=== PATIENT | male | born 1940 | race Caucasian/White ===

== ENCOUNTER → 2016-12-12 | Outpatient (CLI) | payer MEDICARE, BC ==
[2016-12-12 09:16] LABS: HEMATOCRIT 43.8 % (37.9-51.0); HEMOGLOBIN 14.8 g/dL (13.5-17.0); HGB HCT DIFFERENCE 0.6; MEAN CORPUSCULAR HEMOGLOBIN 29.8 pg (27.0-33.4); MEAN CORPUSCULAR HGB CONC 33.7 g/dL (32.0-36.0); MEAN CORPUSCULAR VOLUME 88 fl (80-97); RED BLOOD COUNT 4.96 10^6/uL (4.35-5.55); RED CELL DISTRIBUTION WIDTH 14.7 % (11.5-14.0); WHITE BLOOD COUNT 5.5 10^3/uL (4.0-10.5)
[2016-12-12 09:38] LABS: ALANINE AMINOTRANSFERASE 31 U/L (21-72); ALBUMIN 3.9 g/dL (3.5-5.0); ALKALINE PHOSPHATASE 61 U/L (38-126); ANION GAP 12 (5-19); ASPARTATE AMINO TRANSFERASE 24 U/L (17-59); BILIRUBIN,DIRECT 0.2 mg/dL (0.0-0.4); BLOOD UREA NITROGEN 14 mg/dL (7-20); CALCIUM 9.7 mg/dL (8.4-10.2); CARBON DIOXIDE 26 mmol/L (22-30); CHLORIDE 104 mmol/L (98-107); CHOLESTEROL 120.76 mg/dL (0-200); CREATININE RESULT 0.87 mg/dL (0.52-1.25); Direct HDL 28 mg/dL (>40); GLUCOSE 133 mg/dL (75-110); MAGNESIUM 1.9 mg/dL (1.6-2.3); POTASSIUM 4.5 mmol/L (3.6-5.0); SODIUM 141.7 mmol/L (137-145); TOTAL PROTEIN 6.5 g/dL (6.3-8.2); TRIGLYCERIDES 151 mg/dL (<150)
[2016-12-12 09:49] LABS: DIRECT LDL 66 mg/dL (<100)
[2016-12-12 09:56] LABS: VLDL CHOLESTEROL 30.2 mg/dL (10-31)
== END ==
LOC: OD 08:35
PROVIDERS: ATTEND Internal Medicine Cardiovascular Disease
DX: E11.9 Type 2 diabetes mellitus without complications (principal); Z79.899 Other long term (current) drug therapy; E78.2 Mixed hyperlipidemia
CPT/HCPCS: 36415; 80048; 80061; 80076; 83036; 83735; 84443; 85027

== ENCOUNTER → 2017-07-09 | Outpatient (CLI) | payer MEDICARE, BC ==
[2017-07-09 08:41] LABS: CHOLESTEROL 124.16 mg/dL (0-200); Direct HDL 27 mg/dL (>40); TRIGLYCERIDES 208 mg/dL (<150)
[2017-07-09 08:51] LABS: DIRECT LDL 72 mg/dL (<100)
[2017-07-09 08:55] LABS: VLDL CHOLESTEROL 41.6 mg/dL (10-31)
== END ==
LOC: OD 07:20
PROVIDERS: ATTEND Internal Medicine Cardiovascular Disease
DX: E78.2 Mixed hyperlipidemia (principal)
CPT/HCPCS: 36415; 80061

== ENCOUNTER → 2017-09-20 | Outpatient (CLI) | payer MEDICARE, BC ==
[2017-09-20 10:18] LABS: HEMATOCRIT 45.5 % (37.9-51.0); HEMOGLOBIN 15.2 g/dL (13.5-17.0); MEAN CORPUSCULAR HEMOGLOBIN 29.7 pg (27.0-33.4); MEAN CORPUSCULAR HGB CONC 33.5 g/dL (32.0-36.0); MEAN CORPUSCULAR VOLUME 89 fl (80-97); PLATELET COUNT 206 10^3/uL (150-450); RED BLOOD COUNT 5.13 10^6/uL (4.35-5.55); RED CELL DISTRIBUTION WIDTH 14.5 % (11.5-14.0)
[2017-09-20 10:44] LABS: ANION GAP 11 (5-19); BLOOD UREA NITROGEN 15 mg/dL (7-20); CALCIUM 9.4 mg/dL (8.4-10.2); CARBON DIOXIDE 26 mmol/L (22-30); CHLORIDE 104 mmol/L (98-107); CHOLESTEROL 113.96 mg/dL (0-200); GLUCOSE 155 mg/dL (75-110); MAGNESIUM 1.9 mg/dL (1.6-2.3); POTASSIUM 4.5 mmol/L (3.6-5.0); SODIUM 140.9 mmol/L (137-145); TRIGLYCERIDES 116 mg/dL (<150)
[2017-09-20 10:53] LABS: DIRECT LDL 72 mg/dL (<100)
== END ==
LOC: OD 09:10
PROVIDERS: ATTEND Internal Medicine Cardiovascular Disease
DX: E78.2 Mixed hyperlipidemia (principal); E11.22 Type 2 diabetes mellitus with diabetic chronic kidney disease; N18.9 Chronic kidney disease, unspecified; I50.22 Chronic systolic (congestive) heart failure; Z79.899 Other long term (current) drug therapy
CPT/HCPCS: 36415; 80048; 80061; 80162; 83036; 83735; 84443; 85027

== ENCOUNTER → 2017-09-20 | Outpatient (CLI) | payer MEDICARE, BC | LOC: OD 09:08 | PROVIDERS: ATTEND Internal Medicine Cardiovascular Disease | DX: Z53.9 Procedure and treatment not carried out, unspecified reason (principal) ==

== ENCOUNTER → 2017-12-07 | Outpatient (CLI) | payer MEDICARE, BC ==
[2017-12-07 09:52] LABS: ANION GAP 10 (5-19); BLOOD UREA NITROGEN 14 mg/dL (7-20); CALCIUM 9.6 mg/dL (8.4-10.2); CARBON DIOXIDE 28 mmol/L (22-30); CHLORIDE 104 mmol/L (98-107); GLUCOSE 162 mg/dL (75-110); POTASSIUM 4.7 mmol/L (3.6-5.0); SODIUM 141.7 mmol/L (137-145)
== END ==
LOC: OD 08:05
PROVIDERS: ATTEND Internal Medicine Cardiovascular Disease
DX: E11.9 Type 2 diabetes mellitus without complications (principal); I10 Essential (primary) hypertension; Z79.899 Other long term (current) drug therapy
CPT/HCPCS: 36415; 80048; 83036

== ENCOUNTER → 2017-12-07 | Outpatient (CLI) | payer MEDICARE, BC | LOC: OD 08:28 | PROVIDERS: ATTEND Internal Medicine Cardiovascular Disease | DX: Z53.8 Procedure and treatment not carried out for other reasons (principal) ==

== ENCOUNTER → 2018-03-10 | Outpatient (CLI) | payer MEDICARE ==
[2018-03-10 09:30] LABS: ANION GAP 14 (5-19); BLOOD UREA NITROGEN 15 mg/dL (7-20); CALCIUM 9.2 mg/dL (8.4-10.2); CARBON DIOXIDE 24 mmol/L (22-30); CHLORIDE 105 mmol/L (98-107); CHOLESTEROL 80.43 mg/dL (0-200); GLUCOSE 123 mg/dL (75-110); POTASSIUM 3.9 mmol/L (3.6-5.0); SODIUM 142.9 mmol/L (137-145); TRIGLYCERIDES 102 mg/dL (<150)
[2018-03-10 09:40] LABS: DIRECT LDL 36 mg/dL (<100)
== END ==
LOC: OD 07:59
PROVIDERS: ATTEND Internal Medicine Cardiovascular Disease
DX: E11.9 Type 2 diabetes mellitus without complications (principal)
CPT/HCPCS: 36415; 80048; 80061; 83036

== ENCOUNTER 2018-03-22 15:53 | Emergency (ER) | payer MEDICARE, BC ==
--- NOTE | 2018-03-22 16:15 | ER Document Report ---
ED Medical Screen (RME) - General Chief Complaint: Urinary Problem Stated Complaint: BLOOD IN URINE Time Seen by Provider: 03/22/18 16:13 Mode of Arrival: Ambulatory Information source: Patient TRAVEL OUTSIDE OF THE [place] IN LAST 30 DAYS: No - HPI Patient complains to provider of: hematuria Onset: This morning - pt had surgical procedure done last month in which cancerous lesions remmoved from bladder. Urine was clear post-op until earlier this am when he developed painless hematuria - Related Data Allergies/Adverse Reactions: No Known Allergies Allergy (Verified 03/22/18 15:54) Past Medical History - Past Medical History Cardiac Medical History: Reports: Hx Coronary Artery Disease, Hx Heart Attack, Hx Hypercholesterolemia, Hx Hypertension Pulmonary Medical History: Reports: Hx Sleep Apnea Past Surgical History: Reports: Hx Coronary Stent, Hx Pacemaker, Hx Tonsillectomy Physical Exam - Vital signs Vitals: Temp Pulse Resp BP Pulse Ox 98.5 F 72 18 133/64 H 96 03/22/18 15:59 03/22/18 15:59 03/22/18 15:59 03/22/18 15:59 03/22/18 15:59 Course - Vital Signs Vital signs: Temp Pulse Resp BP Pulse Ox 98.5 F 72 18 133/64 H 96 03/22/18 15:59 03/22/18 15:59 03/22/18 15:59 03/22/18 15:59 03/22/18 15:59 Doctor's Discharge - Discharge Referrals: RODRÍGUEZ CALVERT MD [Primary Care Provider] - Follow up as needed
[2018-03-22 17:46] LABS: ABSOLUTE BASOPHILS # (AUTO) 0.1 10^3/uL (0.0-0.2); ABSOLUTE EOSINOPHILS # (AUTO) 0.4 10^3/uL (0.0-0.6); ABSOLUTE LYMPHOCYTES (AUTO) 1.7 10^3/uL (0.5-4.7); ABSOLUTE MONOCYTES (AUTO) 0.7 10^3/uL (0.1-1.4); ABSOLUTE NEUT (AUTO) 4.5 10^3/uL (1.7-8.2); EOSINOPHILS % (AUTO) 5.9 % (0-6); HEMATOCRIT 42.7 % (37.9-51.0); HEMOGLOBIN 14.3 g/dL (13.5-17.0); LYMPHOCYTES % (AUTO) 22.9 % (13-45); MEAN CORPUSCULAR HEMOGLOBIN 29.3 pg (27.0-33.4); MEAN CORPUSCULAR HGB CONC 33.4 g/dL (32.0-36.0); MEAN CORPUSCULAR VOLUME 88 fl (80-97); MONOCYTES % (AUTO) 9.2 % (3-13); PLATELET COUNT 185 10^3/uL (150-450); RED BLOOD COUNT 4.86 10^6/uL (4.35-5.55); RED CELL DISTRIBUTION WIDTH 14.8 % (11.5-14.0); TOTAL CELLS COUNTED % (AUTO) 100 %; WHITE BLOOD COUNT 7.4 10^3/uL (4.0-10.5)
[2018-03-22 18:05] LABS: ALANINE AMINOTRANSFERASE 34 U/L (21-72); ALBUMIN 3.7 g/dL (3.5-5.0); ALKALINE PHOSPHATASE 63 U/L (38-126); ANION GAP 14 (5-19); APPEARANCE,URINE SLIGHTLY-CLOUDY; ASPARTATE AMINO TRANSFERASE 20 U/L (17-59); BILIRUBIN,DIRECT 0.3 mg/dL (0.0-0.4); BILIRUBIN,TOTAL 0.7 mg/dL (0.2-1.3); BILIRUBIN,URINE NEGATIVE (NEGATIVE); BLOOD UREA NITROGEN 14 mg/dL (7-20); CALCIUM 9.8 mg/dL (8.4-10.2); CARBON DIOXIDE 25 mmol/L (22-30); CHLORIDE 104 mmol/L (98-107); GLUCOSE 116 mg/dL (75-110); GLUCOSE, URINE NEGATIVE (NEGATIVE); KETONES,URINE NEGATIVE (NEGATIVE); LEUKOCYTE ESTERASE,URINE NEGATIVE (NEGATIVE); NITRITE,URINE NEGATIVE (NEGATIVE); POTASSIUM 3.9 mmol/L (3.6-5.0); PROTEIN,URINE 100 mg/dL (NEGATIVE); SODIUM 142.9 mmol/L (137-145); TOTAL PROTEIN 6.2 g/dL (6.3-8.2); URINE SPECIFIC GRAVITY 1.012; UROBILINOGEN,URINE NEGATIVE mg/dL (<2.0)
[2018-03-22 18:12] LABS: COLOR,URINE RED
[2018-03-22] MEDS ORDERED: CEPHALEXIN 500 MG CAPSULE PO ONE (18:19)
--- NOTE | 2018-03-22 18:34 | ER Document Report ---
ED General - General Chief Complaint: Urinary Problem Stated Complaint: BLOOD IN URINE Time Seen by Provider: 03/22/18 16:13 Mode of Arrival: Ambulatory Notes: Patient is a 77-year-old male with a past medical history of bladder cancer status post surgical procedure 3 weeks ago who presents with 4 days of progressive urinary urgency, dysuria and 24 hours of hematuria. The patient describes the discomfort with urination as being a pressure, burning-like sensation. He notes that he became quite concerned when he had persistent gross hematuria throughout the day today prompting him to come to the emergency department. He denies any hematuria until the last 24 hours since having the surgical procedure. He did contact his urologist and has a scheduled follow-up in the next couple days. He notes that he otherwise has no additional symptoms and otherwise feels quite well. Denies any fever or constitutional symptoms. No history of similar symptoms in the past. TRAVEL OUTSIDE OF THE [place] IN LAST 30 DAYS: No - Related Data Allergies/Adverse Reactions: No Known Allergies Allergy (Verified 03/22/18 16:16) Past Medical History - General Information source: Patient - Social History Smoking Status: Former Smoker Chew tobacco use (# tins/day): No Frequency of alcohol use: None Drug Abuse: None Lives with: Family Family History: Reviewed & Not Pertinent Patient has suicidal ideation: No Patient has homicidal ideation: No - Past Medical History Cardiac Medical History: Reports: Hx Coronary Artery Disease, Hx Heart Attack, Hx Hypercholesterolemia, Hx Hypertension Pulmonary Medical History: Reports: Hx Sleep Apnea Renal/ Medical History: Denies: Hx Peritoneal Dialysis Past Surgical History: Reports: Hx Cardiac Surgery - pacemaker/defib, Hx Coronary Stent, Hx Pacemaker, Hx Tonsillectomy, Hx Urinary Tract Surgery - spots removed from bladder Review of Systems - Review of Systems Notes: Constitutional: Negative for fever. HENT: Negative for sore throat. Eyes: Negative for visual changes. Cardiovascular: Negative for chest pain. Respiratory: Negative for shortness of breath. Gastrointestinal: Negative for abdominal pain, vomiting or diarrhea. Genitourinary: Positive for gross hematuria Musculoskeletal: Negative for back pain. Skin: Negative for rash. Neurological: Negative for headaches, weakness or numbness. 10 point ROS negative except as marked above and in HPI. Physical Exam - Vital signs Vitals: Temp Pulse Resp BP Pulse Ox 98.5 F 72 18 133/64 H 96 03/22/18 15:59 03/22/18 15:59 03/22/18 15:59 03/22/18 15:59 03/22/18 15:59 Interpretation: Normal Notes: PHYSICAL EXAMINATION: GENERAL: Well-appearing, well-nourished and in no acute distress. HEAD: Atraumatic, normocephalic. EYES: Pupils equal round and reactive to light, extraocular movements intact, sclera anicteric, conjunctiva are normal. ENT: nares patent, oropharynx clear without exudates. Moist mucous membranes. NECK: Normal range of motion, supple without lymphadenopathy LUNGS: Breath sounds clear to auscultation bilaterally and equal. No wheezes rales or rhonchi. HEART: Regular rate and rhythm without murmurs ABDOMEN: Soft, nontender, normoactive bowel sounds. No guarding, no rebound. No masses appreciated. EXTREMITIES: Normal range of motion, no pitting or edema. No cyanosis. NEUROLOGICAL: No focal neurological deficits. Moves all extremities spontaneously and on command. PSYCH: Normal mood, normal affect. SKIN: Warm, Dry, normal turgor, no rashes or lesions noted. Course - Re-evaluation Re-evalutation: 03/22/18 18:19 Patient presents with symptoms consistent with an acute hemorrhagic cystitis. He has gross, painless hematuria although does have a known history of bladder malignancy status post operative intervention 1 month ago. Vitals wnl. No history of fever, flank pain, or constitution symptoms to suggest ascending infection at this time. Patient is well in appearance, tolerating oral intake without difficulty. No focal abdominal tenderness to suggest acute appendicitis , biliary pathology, acute pancreatitis. labs do not show any significant anemia , leukocytosis or renal dysfunction p. Atient will be started on antibiotics at this time. A culture has been sent. I have emphasized the need for close follow-up with urology given his complicated history. At this time will discharge with return precautions and follow-up recommendations. Verbal discharge instructions given a the bedside and opportunity for questions given. Medication warnings reviewed. Patient is in agreement with this plan and has verbalized understanding of return precautions and the need for primary care follow-up in the next 24-72 hours. - Vital Signs Vital signs: Temp Pulse Resp BP Pulse Ox 98.5 F 72 12 142/68 H 98 03/22/18 15:59 03/22/18 15:59 03/22/18 19:01 03/22/18 19:01 03/22/18 19:01 - Laboratory Result Diagrams: 03/22/18 17:20 03/22/18 17:20 Laboratory results interpreted by me: 03/22/18 03/22/18 03/22/18 17:20 17:20 17:20 RDW 14.8 H Glucose 116 H Total Protein 6.2 L Urine Protein 100 H Urine Blood LARGE H Discharge - Discharge Clinical Impression: Hemorrhagic cystitis, History of bladder cancer Condition: Stable Disposition: HOME, SELF-CARE Additional Instructions: Your urine shows findings consistent with a urinary tract infection. Please take all the antibiotics as directed even if your symptoms have improved. Please follow-up with your urologist as soon as possible given your prior history of bladder malignancy. Return to emergency room if you develop fever > 101F, persistent vomiting, become lethargic, have severe pain in your sides, or any other symptoms that are concerning to you. Prescriptions: Cephalexin Monohydrate [Keflex 500 mg Capsule] 500 mg PO Q6H 7 Days capsule Referrals: RODRÍGUEZ CALVERT MD [Primary Care Provider] - Follow up as needed
[2018-03-22 19:17] VITALS: BP 142/68
== END 2018-03-22 19:20 | disposition home or self-care (01) ==
LOC: ER 15:53
DX: N30.91 Cystitis, unspecified with hematuria (principal); Z85.51 Personal history of malignant neoplasm of bladder; Z98.890 Other specified postprocedural states; I25.10 Atherosclerotic heart disease of native coronary artery without angina pectoris; I10 Essential (primary) hypertension; I25.2 Old myocardial infarction; Z95.810 Presence of automatic (implantable) cardiac defibrillator; Z95.5 Presence of coronary angioplasty implant and graft; Z87.891 Personal history of nicotine dependence
CPT/HCPCS: 99283; 36415; 87086; 85025; 87088; 80053; 81001; 87186; A9270

== ENCOUNTER → 2018-06-20 | Day surgery (SDC) | payer MEDICARE, BC ==
--- NOTE | 2018-06-20 16:21 | RADIOLOGY REPORT (SQ) ---
EXAM DESCRIPTION: CT RT UPPER EXTREMITY WITH COMPLETED DATE/TIME: 06/20/2018 3:57 pm REASON FOR STUDY: M75.121 COMPLETE ROTATR-CUFF TEAR/RUPTR OF R SHOULDER, NOT TRAUMA M75.121 COMPLET E ROTATR-CUFF TEAR/RUPTR OF R SHOULDER, NOT T COMPARISON: None. TECHNIQUE: Axial imaging performed through the [facility] with reformatted oblique coronal and ob lique sagittal imaging windowed for bone and soft tissues. All CT scanners at this facility use dose modulation, iterative reconstruction, and/or weight based d osing when appropriate to reduce radiation dose to as low as reasonably achievable (ALARA). [facility]: Dose Right [facility]: CareDose [facility]: Dose Right [facility]: Teradose 4D [facility]: Independa RADIATION DOSE: CT Rad equipment meets quality standard of care and radiation dose reduction techniq ues were employed. CTDIvol: 13.6 mGy. DLP: 338 mGy-cm. mGy. LIMITATIONS: None. FINDINGS: SOFT TISSUES: Unremarkable BONY ARCHITECTURE: Normal bone density. No fracture. No lytic or blastic lesions GLENOHUMERAL JOINT: Mild diffuse chondromalacia. Subcortical cyst formation over the lower 3rd of th e bony glenoid on coronal reconstruction image 34 ACROMION AND AC JOINT: Type 2 acromion with bulky acromioclavicular joint hypertrophy narrowing the s ubacromial space, this is best shown on sagittal reconstruction image 51 ROTATOR CUFF: Full-thickness tear anterior supraspinatus tendon, with a 2 cm gap best shown on sagitt al reconstruction images 58-63. There is leakage of contrast into the subacromial/subdeltoid bursa. Infraspinatus, subscapularis are intact. GLENOID, LABRUM AND BICEPS: Intact OTHER: No other significant finding. IMPRESSION: Full-thickness tear anterior supraspinatus tendon at its greater tuberosity attachment. Bulky acromioclavicular joint hypertrophy TECHNICAL DOCUMENTATION: JOB ID: [id number] Quality ID # [id number]: Final reports with documentation of one or more dose reduction techniques (e.g., Au tomated exposure control, adjustment of the mA and/or kV according to patient size, use of iterative reconstruction technique) 2010 [employer]- All Rights Reserved Reading location - IP/workstation name: [facility]
--- NOTE | 2018-06-20 16:26 | RADIOLOGY REPORT (SQ) ---
EXAM DESCRIPTION: ARTHRO SHOULDER INJECTION; FLUORO/NEEDLE PLACEMENT COMPLETED DATE/TIME: 06/20/2018 4:05 pm REASON FOR STUDY: M75.121 COMPLETE ROTATR-CUFF TEAR/RUPTR OF R SHOULDER, NOT TRAUMA M75.121 COMPLET E ROTATR-CUFF TEAR/RUPTR OF R SHOULDER, NOT T COMPARISON: None. FLUOROSCOPY TIME: 0.2 minutes 2 digital radiographic images saved to PACS. LIMITATIONS: None. PROCEDURE: Procedure, risks, benefits and alternative explained to patient who then gave written con sent. The posterior right shoulder was marked and a time-out was called for correct marking verifica tion. Posterior entry site marked using fluoroscopic guidance. Shoulder prepped and draped using st erile technique. Local anesthesia achieved using 8 mL of 1% lidocaine injection. 22 gauge spinal nee dle introduced into the joint space under direct fluoroscopic visualization. Non-ionic contrast inst illed to confirm intra-articular position. Additional dilute non-ionic contrast instilled. Needle r emoved and entry site covered with sterile bandage. No immediate complications noted. TECHNIQUE: Digital images acquired during fluoroscopy and stored on PACS. Patient immediately take n to the CT suite for additional imaging. INJECTION LOCATION: Posterior right glenohumeral joint CONTRAST TYPE AND AMOUNT: 1 mL of Omnipaque 300 was injected to confirm intra-articular needle placem ent, followed by 10 mL of dilute Omnipaque/saline mixture for CT arthrogram. On injection, there was immediate opacification of the sub acromial/subdeltoid bursa through a full-thickness supraspinatus tear. IMPRESSION: SUCCESSFUL NEEDLE PLACEMENT AND INJECTION FOR RIGHT SHOULDER CT ARTHROGRAM USING POSTERI OR APPROACH. COMMENT: Quality ID 145: Final reports for procedures using fluoroscopy that document radiation exp osure indices, or exposure time and number of fluorographic images (if radiation exposure indices are not available) TECHNICAL DOCUMENTATION: JOB ID: [id number] [employer]- All Rights Reserved Reading location - IP/workstation name: [email or web address]
--- NOTE | 2018-06-20 16:26 | RADIOLOGY REPORT (SQ) ---
EXAM DESCRIPTION: ARTHRO SHOULDER INJECTION; FLUORO/NEEDLE PLACEMENT COMPLETED DATE/TIME: 06/20/2018 4:05 pm REASON FOR STUDY: M75.121 COMPLETE ROTATR-CUFF TEAR/RUPTR OF R SHOULDER, NOT TRAUMA M75.121 COMPLET E ROTATR-CUFF TEAR/RUPTR OF R SHOULDER, NOT T COMPARISON: None. FLUOROSCOPY TIME: 0.2 minutes 2 digital radiographic images saved to PACS. LIMITATIONS: None. PROCEDURE: Procedure, risks, benefits and alternative explained to patient who then gave written con sent. The posterior right shoulder was marked and a time-out was called for correct marking verifica tion. Posterior entry site marked using fluoroscopic guidance. Shoulder prepped and draped using st erile technique. Local anesthesia achieved using 8 mL of 1% lidocaine injection. 22 gauge spinal nee dle introduced into the joint space under direct fluoroscopic visualization. Non-ionic contrast inst illed to confirm intra-articular position. Additional dilute non-ionic contrast instilled. Needle r emoved and entry site covered with sterile bandage. No immediate complications noted. TECHNIQUE: Digital images acquired during fluoroscopy and stored on PACS. Patient immediately take n to the CT suite for additional imaging. INJECTION LOCATION: Posterior right glenohumeral joint CONTRAST TYPE AND AMOUNT: 1 mL of Omnipaque 300 was injected to confirm intra-articular needle placem ent, followed by 10 mL of dilute Omnipaque/saline mixture for CT arthrogram. On injection, there was immediate opacification of the sub acromial/subdeltoid bursa through a full-thickness supraspinatus tear. IMPRESSION: SUCCESSFUL NEEDLE PLACEMENT AND INJECTION FOR RIGHT SHOULDER CT ARTHROGRAM USING POSTERI OR APPROACH. COMMENT: Quality ID 145: Final reports for procedures using fluoroscopy that document radiation exp osure indices, or exposure time and number of fluorographic images (if radiation exposure indices are not available) TECHNICAL DOCUMENTATION: JOB ID: [id number] [employer]- All Rights Reserved Reading location - IP/workstation name: [email or web address]
== END ==
LOC: RAD 15:11
PROVIDERS: ATTEND Orthopaedic Surgery
DX: M75.121 Complete rotator cuff tear or rupture of right shoulder, not specified as traumatic (principal)
CPT/HCPCS: 23350; 77002

== ENCOUNTER → 2018-09-10 | Outpatient (CLI) | payer MEDICARE, BC ==
[2018-09-10 09:27] LABS: ALANINE AMINOTRANSFERASE 30 U/L (21-72); ALBUMIN 4.4 g/dL (3.5-5.0); ALKALINE PHOSPHATASE 61 U/L (38-126); ANION GAP 10 (5-19); ASPARTATE AMINO TRANSFERASE 22 U/L (17-59); BILIRUBIN,DIRECT 0.2 mg/dL (0.0-0.4); BILIRUBIN,TOTAL 0.9 mg/dL (0.2-1.3); BLOOD UREA NITROGEN 15 mg/dL (7-20); CALCIUM 9.8 mg/dL (8.4-10.2); CARBON DIOXIDE 29 mmol/L (22-30); CHLORIDE 104 mmol/L (98-107); CHOLESTEROL 131.87 mg/dL (0-200); GLUCOSE 111 mg/dL (75-110); POTASSIUM 4.7 mmol/L (3.6-5.0); SODIUM 142.7 mmol/L (137-145); TOTAL PROTEIN 6.9 g/dL (6.3-8.2); TRIGLYCERIDES 124 mg/dL (<150)
[2018-09-10 09:38] LABS: DIRECT LDL 83 mg/dL (<100)
== END ==
LOC: OD 07:55
PROVIDERS: ATTEND Internal Medicine Cardiovascular Disease
DX: I10 Essential (primary) hypertension (principal); E11.9 Type 2 diabetes mellitus without complications; E78.2 Mixed hyperlipidemia
CPT/HCPCS: 36415; 80048; 80061; 80076; 83036

== ENCOUNTER → 2019-03-11 | Outpatient (CLI) | payer MEDICARE, BC ==
[2019-03-11 09:16] LABS: ALANINE AMINOTRANSFERASE 23 U/L (21-72); ALBUMIN 4.3 g/dL (3.5-5.0); ALKALINE PHOSPHATASE 79 U/L (38-126); ANION GAP 9 (5-19); ASPARTATE AMINO TRANSFERASE 25 U/L (17-59); BILIRUBIN,DIRECT 0.3 mg/dL (0.0-0.4); BILIRUBIN,TOTAL 0.7 mg/dL (0.2-1.3); BLOOD UREA NITROGEN 17 mg/dL (7-20); CALCIUM 10.1 mg/dL (8.4-10.2); CARBON DIOXIDE 25 mmol/L (22-30); CHLORIDE 106 mmol/L (98-107); GLUCOSE 127 mg/dL (75-110); POTASSIUM 4.6 mmol/L (3.6-5.0); TRIGLYCERIDES 105 mg/dL (<150)
[2019-03-11 09:28] LABS: DIRECT LDL 82 mg/dL (<100)
== END ==
LOC: OD 08:00
PROVIDERS: ATTEND Internal Medicine Cardiovascular Disease
DX: E78.2 Mixed hyperlipidemia (principal); I10 Essential (primary) hypertension; Z79.899 Other long term (current) drug therapy
CPT/HCPCS: 36415; 80048; 80061; 80076

== ENCOUNTER 2019-05-23 19:17 | Emergency (ER) | payer MEDICARE, BC ==
[2019-05-23] MEDS ORDERED: ONDANSETRON HCL INJ/PF 4 MG/2 ML SDV IV ONE (20:25)
[2019-05-23] MEDS ORDERED: NORMAL SALINE 1000 ML 1,000 ML IV ONE (20:28)
[2019-05-23 20:43] LABS: ABSOLUTE LYMPHOCYTES (AUTO) 0.8 10^3/uL (0.5-4.7); ABSOLUTE MONOCYTES (AUTO) 0.3 10^3/uL (0.1-1.4); ABSOLUTE NEUT (AUTO) 6.4 10^3/uL (1.7-8.2); BASOPHILS % (AUTO) 0.5 % (0-2); EOSINOPHILS % (AUTO) 0.2 % (0-6); HEMATOCRIT 46.5 % (37.9-51.0); HEMOGLOBIN 15.3 g/dL (13.5-17.0); LYMPHOCYTES % (AUTO) 11.1 % (13-45); MEAN CORPUSCULAR HEMOGLOBIN 29.7 pg (27.0-33.4); MEAN CORPUSCULAR HGB CONC 32.9 g/dL (32.0-36.0); MEAN CORPUSCULAR VOLUME 90 fl (80-97); MONOCYTES % (AUTO) 4.2 % (3-13); PLATELET COUNT 200 10^3/uL (150-450); RED BLOOD COUNT 5.15 10^6/uL (4.35-5.55); RED CELL DISTRIBUTION WIDTH 15.4 % (11.5-14.0); TOTAL CELLS COUNTED % (AUTO) 100 %; WHITE BLOOD COUNT 7.6 10^3/uL (4.0-10.5)
--- NOTE | 2019-05-23 20:44 | ER Document Report ---
ED General - General Chief Complaint: Nausea Stated Complaint: CHEST PAIN Time Seen by Provider: 05/23/19 20:09 Primary Care Provider: RODRÍGUEZ CALVERT MD [Primary Care Provider] - Follow up as needed Mode of Arrival: Ambulatory Information source: Patient TRAVEL OUTSIDE OF THE [place] IN LAST 30 DAYS: No - HPI Patient complains to provider of: Diffuse waves of nausea and abdominal discomfort Onset: Other - Patient states symptoms started at 1330 hrs. today Quality of pain: No pain Severity: None Similar symptoms previously: No Recently seen / treated by doctor: No Notes: This is a 78-year-old male with a history of atrial fibrillation, and atrial pacemaker, taking Plavix and aspirin that presents with a chief complaint of waves of generalized abdominal discomfort, waves of nausea, and a sensation of weakness that requires him to sit down when symptoms occur. Patient states that symptoms are intermittent, that they do not seem to be exacerbated by movement, sensation of weakness seems to improve with sitting down. Patient's is present at bedside and relate some history. Patient states that the symptoms are new for him and he has no prior history of diverticulitis, gallbladder disease, prior abdominal surgeries. Patient denies chest pain, shortness of breath. Patient states that when the symptoms come on he feels like he is going to pass out but has not actually passed out. Patient states that he does "break out in a sweat" when the nausea and abdominal discomfort occur. Patient denies vomiting, diarrhea. Patient denies change in bowel or urinary habits. Patient denies fever, chills, exposure to sick contacts, use of well water, recent antibiotic use. - Related Data Allergies/Adverse Reactions: No Known Allergies Allergy (Verified 03/22/18 16:16) Past Medical History - Social History Smoking Status: Former Smoker Family History: Reviewed & Not Pertinent Patient has suicidal ideation: No Patient has homicidal ideation: No - Past Medical History Cardiac Medical History: Reports: Hx Coronary Artery Disease, Hx Heart Attack, Hx Hypercholesterolemia, Hx Hypertension Pulmonary Medical History: Reports: Hx Sleep Apnea Endocrine Medical History: Reports: Hx Diabetes Mellitus Type 2 Renal/ Medical History: Denies: Hx Peritoneal Dialysis Past Surgical History: Reports: Hx Cardiac Surgery - pacemaker/defib, Hx Coron juan jose Stent, Hx Pacemaker, Hx Tonsillectomy, Hx Urinary Tract Surgery - spots removed from bladder Review of Systems - Review of Systems Constitutional: Weakness EENT: No symptoms reported Cardiovascular: No symptoms reported Respiratory: No symptoms reported Gastrointestinal: Nausea Genitourinary: No symptoms reported Male Genitourinary: No symptoms reported Musculoskeletal: No symptoms reported Skin: No symptoms reported Hematologic/Lymphatic: No symptoms reported Neurological/Psychological: No symptoms reported -: Yes All other systems reviewed and negative Physical Exam - Vital signs Vitals: Temp Pulse Resp BP Pulse Ox 97.4 F 63 16 138/61 H 94 05/23/19 19:29 05/23/19 19:29 05/23/19 19:29 05/23/19 19:29 05/23/19 19:29 - General General appearance: Alert In distress: None - HEENT Head: Normocephalic, Atraumatic Eyes: Normal Conjunctiva: Normal Cornea: Normal Mucous membranes: Normal - Respiratory Respiratory status: No respiratory distress Chest status: Nontender Breath sounds: Normal Chest palpation: Normal - Cardiovascular Rhythm: Regular Heart sounds: Normal auscultation Murmur: No Friction rub: No Yosvany's crunch: No - Abdominal Inspection: Normal Distension: No distension Bowel sounds: Normal Tenderness: Nontender, Other - No aortic bruit or pulsatile mass appreciated on exam.. No: McBurney's point, Farooq's sign, Guarding, Rebound Organomegaly: No organomegaly. No: Hepatomegaly, Splenomegaly, Mass - Extremities General upper extremity: Normal inspection General lower extremity: Normal inspection - Neurological Neuro grossly intact: Yes Cognition: Normal Orientation: AAOx4 Bibi Coma Scale Eye Opening: Spontaneous Bibi Coma Scale Verbal: Oriented Bibi Coma Scale Motor: Obeys Commands Bibi Coma Scale Total: 15 Speech: Normal Cranial nerves: Normal Cerebellar coordination: Normal - Psychological Associated symptoms: Normal affect, Normal mood - Skin Skin Temperature: Warm Skin Moisture: Dry Skin Color: Pale Course - Re-evaluation Re-evalutation: 05/23/19 23:42 Patient is sitting up at the bedside looking at his smart phone. Patient states that he feels much better. Patient states he is ready to go home. Patient's agrees that the patient does appear to be looking and feeling better than he did on presentation. Patient's IV fluids (1000 mL normal saline bolus) is complete, and the patient's systolic blood pressure is now 141. Imaging results, labs, EKG findings, urinalysis results, and lactic acid all discussed with patient and patient's . Patient's asked questions about what a lactic acid level is which was explained to her by this MD. Patient's expressed understanding of lactic acid level as it was explained to her. Medical decision making: Options for treatment of symptoms discussed with patient and patient's . They both expressed understanding of treatment options. Patient states he would prefer to be treated as an outpatient since he is feeling better. Patient agreed to have blood cultures and a repeat lactic acid level drawn prior to administration of 2 g of Rocephin. At 2347 hrs., patient remains with improved appearance. 05/24/19 01:26 Patient received IV antibiotics, blood cultures are drawn, repeat lactic acid is down from 2.9-2.7. Reexamination of the patient reveals that he no longer appears pale, denies nausea, denies weakness. Patient states that he feels "fine" and is ready to go home. Emergency signs and symptoms, reasons to call 911, reasons to return to the emergency department all discussed with patient and patient's ; they expressed understanding of results and plan as explained to them. Differential diagnosis/medical decision-making: Differential diagnosis includes viral gastroenteritis, mesenteric ischemia, UTI, sepsis, acute biliary disease, acute pancreatitis, diverticulitis, sepsis. Patient's physical exam, objective and subjective findings are suggestive of acute cystitis. Plan: Discharge with prescription for Omnicef 600 mg p.o. daily x10 days. Patient instructed to follow-up with his PCP on 05/25/2019. - Vital Signs Vital signs: Temp Pulse Resp BP Pulse Ox 97.4 F 68 17 136/60 H 95 05/23/19 19:29 05/23/19 22:05 05/24/19 00:31 05/24/19 00:31 05/24/19 00:31 - Laboratory Result Diagrams: 05/23/19 19:53 05/23/19 19:53 Laboratory results interpreted by me: 05/23/19 05/23/19 05/23/19 19:53 19:53 20:26 RDW 15.4 H Lymph % (Auto) 11.1 L Seg Neutrophils % 84.0 H Glucose 195 H Lactic Acid 2.9 H Urine Glucose (UA) Ur Leukocyte Esterase 05/23/19 05/23/19 21:03 23:58 RDW Lymph % (Auto) Seg Neutrophils % Glucose Lactic Acid 2.7 H Urine Glucose (UA) 150 H Ur Leukocyte Esterase TRACE H - Diagnostic Test Radiology reviewed: Reports reviewed - No acute abnormality was reported on the chest x-ray or on the CT of the abdomen pelvis. The patient's 3 cm abdominal aortic aneurysm is being followed on a regular basis by the patient's doctor per patient's report. - EKG Interpretation by Me When compared to previous EKG there are: Other - EKG was compared to prior EKG from 11/09/2015. Prior EKG shows similar atrial paced complexes and T wave inversion in the 4 through V6. Gross morphology appears unchanged Additional EKG results interpreted by me: 05/23/19 20:41 EKG performed at 1923 hrs. on 05/23/2019 shows an atrial paced rhythm with a rate of 65. There are no apparent ST segment elevations or depressions apparent on the EKG. The axis appears normal without deviation. There is nonspecific ST segments with some T wave inversion and V4 through V6. Impression: Atrial paced complexes with normal axis, narrow QRS, and nonspecific ST segments. Discharge - Discharge Clinical Impression: Acute cystitis Condition: Good Disposition: HOME, SELF-CARE Instructions: Urinary Tract Infection ([facility]), Nausea or Vomiting, Nonspecific ([facility]) Additional Instructions: Return to the Emergency Department without delay if any worse. Prescriptions: Cefdinir [Omnicef 300 mg Capsule] 2 cap PO BID 10 Days #30 capsule Referrals: RODRÍGUEZ CALVERT MD [Primary Care Provider] - Follow up as needed
[2019-05-23 20:54] LABS: ALBUMIN 4.3 g/dL (3.5-5.0); ALKALINE PHOSPHATASE 63 U/L (38-126); ANION GAP 11 (5-19); ASPARTATE AMINO TRANSFERASE 25 U/L (17-59); BILIRUBIN,DIRECT 0.2 mg/dL (0.0-0.4); BILIRUBIN,TOTAL 0.7 mg/dL (0.2-1.3); BLOOD UREA NITROGEN 17 mg/dL (7-20); CALCIUM 9.4 mg/dL (8.4-10.2); CARBON DIOXIDE 24 mmol/L (22-30); CHLORIDE 104 mmol/L (98-107); GLUCOSE 195 mg/dL (75-110); POTASSIUM 4.3 mmol/L (3.6-5.0); TOTAL PROTEIN 7.1 g/dL (6.3-8.2)
[2019-05-23 21:19] LABS: APPEARANCE,URINE CLEAR; BILIRUBIN,URINE NEGATIVE (NEGATIVE); COLOR,URINE YELLOW; GLUCOSE, URINE 150 mg/dL (NEGATIVE); KETONES,URINE NEGATIVE (NEGATIVE); LEUKOCYTE ESTERASE,URINE TRACE (NEGATIVE); NITRITE,URINE NEGATIVE (NEGATIVE); PROTEIN,URINE NEGATIVE (NEGATIVE); URINE SPECIFIC GRAVITY 1.021; UROBILINOGEN,URINE NEGATIVE mg/dL (<2.0)
--- NOTE | 2019-05-23 21:32 | RADIOLOGY REPORT (SQ) ---
EXAM DESCRIPTION: XR CHEST 1 VIEW COMPLETED DATE/TME: 05/23/2019 20:28 CLINICAL HISTORY: 78 years, Male, nausea, diaphoresis, abdominal discomfort COMPARISON: Prior study from 11/09/2015 NUMBER OF VIEWS: One TECHNIQUE: Single frontal view of the chest was obtained portably LIMITATIONS: None. FINDINGS: Left subclavian approach AICD/pacer is unchanged in position. Cardiac and mediastinal contours are stable. Lungs are clear. No pleural effusion or pneumothorax. IMPRESSION: No acute disease. copyright 2010 [employer]- All Rights Reserved
--- NOTE | 2019-05-23 21:53 | RADIOLOGY REPORT (SQ) ---
EXAM DESCRIPTION: CT ABDOMEN PELVIS WITH IV CONTRAST COMPLETED DATE/TME: 05/23/2019 20:28 CLINICAL HISTORY: 78 years, Male, nausea, diaphoresis, abdominal discomfort COMPARISON: None. TECHNIQUE: Contrast enhanced CT of the abdomen/pelvis was performed. Coronal and sagittal reformations were created. Images stored on PACS. All CT scanners at this facility use dose modulation, iterative reconstruction, and/or weight based dosing when appropriate to reduce radiation dose to as low as reasonably achievable (ALARA). [facility]: Dose Right [facility]: CareDose [facility]: Dose Right [facility]: Teradose 4D [facility]: Independa LIMITATIONS: None. FINDINGS: Limited evaluation of the lower chest reveals is. Calcifications are evident about the aortic valve and mitral annulus. Additional calcifications noted about the descending thoracic aorta. The liver, spleen, pancreas, gallbladder, and both adrenal glands are normal in appearance. An intermediate density lesion is noted about the interpolar region of the right kidney measuring 1.5 x 1.3 cm in size in image 36 of series 3. In addition, there is a simple cyst about the interpolar region of the left kidney. Additional subcentimeter lesions about both kidneys are too small to accurately characterize. No hydronephrosis or hydroureter. The urinary bladder is well-distended and appears to contain a calculus located about the dependent portion. Prostate gland is enlarged. Fat-containing left inguinal hernia is noted. Scattered colonic diverticula are evident. No adjacent inflammation. No evidence of bowel obstruction. Appendix is normal. Calcifications are noted about the abdominal aorta and proximal iliac vessels. There is mild aneurysmal dilatation of the infrarenal abdominal aorta measuring 3.0 x 3.0 cm in size. The right common artery is also dilated measuring up to 1.8 cm in short axis. No suspicious lymphadenopathy. Bone windows show no destructive osseous lesions. IMPRESSION: No acute abnormality within the abdomen or pelvis. Intermediate density lesion located within the interpolar region of the right kidney is indeterminate on this examination. Recommend correlation with renal mass protocol CT as this could represent a solid renal neoplasm. 3.0 cm abdominal aortic aneurysm. Recommend follow-up every 3 years. Reference: J Am Kiana Radiol 2013;10:789-794. Bladder calculus. TECHNICAL DOCUMENTATION: Quality ID # 436: Final reports with documentation of one or more dose reduction techniques (e.g., Automated exposure control, adjustment of the mA and/or kV according to patient size, use of iterative reconstruction technique) copyright 2011 [employer]- All Rights Reserved
[2019-05-23] MEDS ORDERED: CEFTRIAXONE INJ 1000 MG VIAL IV ONE (23:41)
[2019-05-24 01:59] VITALS: BP 128/64
--- NOTE | 2019-05-24 08:51 | EKG REPORT ---
SEVERITY:- ABNORMAL ECG - ATRIAL-PACED COMPLEXES, SUSPECT A LEAD SENSING FAILURE AND FAILURE TO CAPTURE. INFERIOR INFARCT, AGE INDETERMINATE CONSIDER POSTERIOR WALL INVOLVEMENT LATERAL LEADS ARE ALSO INVOLVED, THIS IS NEW, COMPARED TO 10/26/2015 EKG. : Confirmed by: Rj Galeas MD 24-May-2019 08:50:48
== END 2019-05-24 01:59 | disposition home or self-care (01) ==
LOC: ER 19:17
DX: N30.00 Acute cystitis without hematuria (principal); R11.0 Nausea; R07.9 Chest pain, unspecified; I25.10 Atherosclerotic heart disease of native coronary artery without angina pectoris; I25.2 Old myocardial infarction; E78.00 Pure hypercholesterolemia, unspecified; I10 Essential (primary) hypertension; E11.9 Type 2 diabetes mellitus without complications; Z95.810 Presence of automatic (implantable) cardiac defibrillator; Z79.01 Long term (current) use of anticoagulants; Z79.82 Long term (current) use of aspirin
CPT/HCPCS: 93005; 36415; 87040; 83605; 83690; 85025; 80053; 81001; 84484; 71045; 74177; 93010; J0696; J2405; J7030; 96361; 96374; 96375; 99284

== ENCOUNTER → 2019-06-11 | Outpatient (CLI) | payer MEDICARE, BC ==
[2019-06-11 11:20] LABS: ALBUMIN 4.1 g/dL (3.5-5.0); ALKALINE PHOSPHATASE 78 U/L (38-126); ASPARTATE AMINO TRANSFERASE 26 U/L (17-59); BILIRUBIN,DIRECT 0.2 mg/dL (0.0-0.4); BILIRUBIN,TOTAL 0.8 mg/dL (0.2-1.3); CHOLESTEROL 108.56 mg/dL (0-200); TOTAL PROTEIN 6.9 g/dL (6.3-8.2); TRIGLYCERIDES 129 mg/dL (<150)
[2019-06-11 11:31] LABS: DIRECT LDL 70 mg/dL (<100)
== END ==
LOC: LAB 10:36
PROVIDERS: ATTEND Internal Medicine Cardiovascular Disease
DX: E78.2 Mixed hyperlipidemia (principal); R06.02 Shortness of breath; Z79.899 Other long term (current) drug therapy
CPT/HCPCS: 36415; 80061; 80076; 83880

== ENCOUNTER → 2019-07-01 | Outpatient (CLI) | payer MEDICARE, BC ==
[2019-07-01 12:43] LABS: ANION GAP 10 (5-19); BLOOD UREA NITROGEN 16 mg/dL (7-20); CALCIUM 9.6 mg/dL (8.4-10.2); CARBON DIOXIDE 25 mmol/L (22-30); CHLORIDE 105 mmol/L (98-107); GLUCOSE 128 mg/dL (75-110)
== END ==
LOC: LAB 12:10
PROVIDERS: ATTEND Internal Medicine Cardiovascular Disease
DX: I10 Essential (primary) hypertension (principal); Z79.899 Other long term (current) drug therapy; R06.02 Shortness of breath
CPT/HCPCS: 36415; 80048; 83880

== ENCOUNTER → 2019-07-22 | Outpatient (CLI) | payer MEDICARE, BC ==
[2019-07-22 14:06] LABS: ANION GAP 11 (5-19); BLOOD UREA NITROGEN 20 mg/dL (7-20); CALCIUM 9.8 mg/dL (8.4-10.2); CARBON DIOXIDE 27 mmol/L (22-30); CHLORIDE 100 mmol/L (98-107); GLUCOSE 134 mg/dL (75-110); POTASSIUM 4.6 mmol/L (3.6-5.0)
== END ==
LOC: LAB 13:20
PROVIDERS: ATTEND Internal Medicine Cardiovascular Disease
DX: I10 Essential (primary) hypertension (principal); Z79.899 Other long term (current) drug therapy
CPT/HCPCS: 36415; 80048

== ENCOUNTER → 2019-11-26 | Outpatient (CLI) | payer MEDICARE, BC ==
[2019-11-26 09:32] LABS: ALBUMIN 4.1 g/dL (3.5-5.0); ALKALINE PHOSPHATASE 65 U/L (38-126); ANION GAP 6 (5-19); ASPARTATE AMINO TRANSFERASE 24 U/L (17-59); BLOOD UREA NITROGEN 21 mg/dL (7-20); CALCIUM 9.6 mg/dL (8.4-10.2); CARBON DIOXIDE 29 mmol/L (22-30); CHLORIDE 103 mmol/L (98-107); CHOLESTEROL 122.68 mg/dL (0-200); GLUCOSE 126 mg/dL (75-110); POTASSIUM 4.3 mmol/L (3.6-5.0); TOTAL PROTEIN 6.9 g/dL (6.3-8.2); TRIGLYCERIDES 132 mg/dL (<150)
[2019-11-26 09:44] LABS: DIRECT LDL 85 mg/dL (<100)
== END ==
LOC: OD 08:30
PROVIDERS: ATTEND Internal Medicine Cardiovascular Disease
DX: E78.2 Mixed hyperlipidemia (principal); I10 Essential (primary) hypertension; E66.09 Other obesity due to excess calories; Z79.899 Other long term (current) drug therapy
CPT/HCPCS: 36415; 80048; 80061; 80076; 83036

== ENCOUNTER → 2020-03-30 | Outpatient (CLI) | payer MEDICARE, BC ==
[2020-03-30 08:43] LABS: ALBUMIN 4.4 g/dL (3.5-5.0); ALKALINE PHOSPHATASE 62 U/L (38-126); ANION GAP 10 (5-19); ASPARTATE AMINO TRANSFERASE 25 U/L (17-59); BILIRUBIN,TOTAL 0.8 mg/dL (0.2-1.3); BLOOD UREA NITROGEN 28 mg/dL (7-20); CALCIUM 9.8 mg/dL (8.4-10.2); CARBON DIOXIDE 28 mmol/L (22-30); CHLORIDE 101 mmol/L (98-107); CHOLESTEROL 112.28 mg/dL (0-200); GLUCOSE 127 mg/dL (75-110); TOTAL PROTEIN 7.1 g/dL (6.3-8.2); TRIGLYCERIDES 85 mg/dL (<150)
[2020-03-30 08:53] LABS: DIRECT LDL 65 mg/dL (<100)
== END ==
LOC: OD 07:27
PROVIDERS: ATTEND Internal Medicine Cardiovascular Disease
DX: I11.0 Hypertensive heart disease with heart failure (principal); I50.22 Chronic systolic (congestive) heart failure; E11.9 Type 2 diabetes mellitus without complications; E78.2 Mixed hyperlipidemia; Z79.899 Other long term (current) drug therapy
CPT/HCPCS: 36415; 80048; 80061; 80076; 83036; 83880

== ENCOUNTER → 2020-06-17 | Outpatient (CLI) | payer MEDICARE, BC ==
[2020-06-17 10:12] LABS: ALBUMIN 4.2 g/dL (3.5-5.0); ALKALINE PHOSPHATASE 54 U/L (38-126); ASPARTATE AMINO TRANSFERASE 34 U/L (17-59); BILIRUBIN,DIRECT 0.1 mg/dL (0.0-0.4); BILIRUBIN,TOTAL 0.6 mg/dL (0.2-1.3); CHOLESTEROL 91.63 mg/dL (0-200); CREATINE KINASE 45 U/L (55-170)
[2020-06-17 10:26] LABS: TRIGLYCERIDES 83 mg/dL (<150)
[2020-06-17 10:35] LABS: DIRECT LDL 45 mg/dL (<100)
== END ==
LOC: OD 08:35
PROVIDERS: ATTEND Internal Medicine Cardiovascular Disease
DX: E78.2 Mixed hyperlipidemia (principal); Z79.899 Other long term (current) drug therapy
CPT/HCPCS: 36415; 80061; 80076; 82550